=== PATIENT | male | born 1975 | race Caucasian/White ===

== ENCOUNTER 2022-09-07 17:23 | Emergency (ER) | payer MEDICAID ==
[~2022-09-07] VITALS: Ht 172.7 cm; Wt 91.0 kg
[2022-09-07 17:28] VITALS: O2SAT 98
[2022-09-07] MEDS ORDERED: ACETAMINOPHEN 325MG TABLET PO STA (17:49)
[2022-09-07] MEDS ORDERED: SODIUM CHLORIDE 0.9% 1,000 ML IV ONE (18:00)
[2022-09-07 18:52] LABS: BASOPHILS % 0.4 % (0.0-2.0); EOSINOPHILS % 2.1 % (0.0-5.0); HEMATOCRIT. 42.3 % (42.0-52.0); HEMOGLOBIN. 14.5 g/dL (14.0-18.0); LYMPHOCYTES % 20.6 % (20.0-50.0); MEAN CORPUSCULAR HEMOGLOBIN 29.4 pg (28.0-32.0); MEAN CORPUSCULAR HGB CONC 34.2 g/dL (31.0-37.0); MEAN CORPUSCULAR VOLUME 85.8 fL (80.0-94.0); MEAN PLATELET VOLUME 7.5 fl (7.4-10.4); MONOCYTES % 6.9 % (2.0-8.0); PLATELET 271 x1000/uL (130-400); RED BLOOD CELL COUNT 4.93 mill/uL (4.7-6.1); WHITE BLOOD COUNT 11.1 x1000/uL (4.5-11.0)
[2022-09-07 19:02] LABS: CHLORIDE 110 mEq/L (98-107); INDEX HEMOLYSI 1 (1-3); INDEX ICTERIC 1 (1-4); INDEX LIPEMIC 1 (1-3); POTASSIUM 3.6 mEq/L (3.5-5.1); SODIUM 140 mEq/L (136-145)
[2022-09-07 19:09] LABS: ALANINE AMINOTRANSFERASE 38 IU/L (13-61); ALBUMIN 3.8 g/dL (3.4-5.0); ASPARTATE AMINOTRANSFERASE 26 IU/L (15-37); BILIRUBIN TOTAL 0.4 mg/dL (0.1-1.0); CALCIUM 8.5 mg/dL (8.5-10.1); CARBON DIOXIDE 25 mEq/L (21-32); CREATININE 0.8 mg/dL (0.6-1.3); GLUCOSE 112 mg/dL (70-105); PROTEIN TOTAL 7.5 g/dL (6.0-8.3); UREA NITROGEN BLOOD 13 mg/dL (7-21)
[2022-09-07] MEDS ORDERED: ACET-2708 MT (20:53)
[2022-09-07] MEDS ORDERED: ACETAMINOPHEN 325MG TABLET PO NR (21:00)
[2022-09-07 21:55] VITALS: BP 105/63; PULSE 83; RESP 16; TEMP 98.6
[2022-09-07] MEDS ORDERED: IOHEXOL-300 100 ML BOTTLE ONE (22:02)
== END 2022-09-07 22:00 | disposition home or self-care (01) ==
LOC: ER 17:23
DX: R10.9 Unspecified abdominal pain (principal); R07.89 Other chest pain
CPT/HCPCS: 80053; 83690; 85025; 85610; 36415; 71045; 74177; 93005; 96360; 99285; Q9967; J7030; Z7610